=== PATIENT | male | born 1965 | race African-American/Black ===

== ENCOUNTER 2017-07-30 08:07 | Emergency (ER) | payer MEDICAID ==
[~2017-07-30] VITALS: Ht 182.9 cm; Wt 95.0 kg
[~2017-07-30 08:07] MED LIST: ASPI81TA35; ATOR10TA; ZYDS20
[2017-07-30] MEDS ORDERED: IBUPROFEN 800MG TABLET PO ONE (09:30)
[2017-07-30 09:50] LABS: HEMATOCRIT. 36.9 % (42.0-52.0); MEAN CORPUSCULAR HEMOGLOBIN 27.8 pg (28.0-32.0); MEAN CORPUSCULAR VOLUME 85.4 fL (80.0-94.0); MEAN PLATELET VOLUME 7.9 fl (7.4-10.4); PLATELET 202 x1000/uL (130-400); RED BLOOD CELL COUNT 4.32 mill/uL (4.7-6.1); RED CELL DISTRIBUTION WIDTH 14.5 % (11.6-14.6)
[2017-07-30 09:55] LABS: CHLORIDE 101 mEq/L (98-107)
[2017-07-30 10:02] LABS: CARBON DIOXIDE 33 mEq/L (21-32)
[2017-07-30 10:04] LABS: CLARITY URINE CLEAR (CLEAR); COLOR URINE DARK YELLOW (YELLOW); GLUCOSE URINE NEGATIVE (NEGATIVE); KETONES URINE TRACE (NEGATIVE); LEUKOCYTE ESTERASE URINE NEGATIVE (NEGATIVE); NITRITE URINE NEGATIVE (NEGATIVE); OCCULT BLOOD URINE 2+ (NEGATIVE); PROTEIN URINE 1+ (NEGATIVE); SPECIFIC GRAVITY URINE 1.031 (1.005-1.030)
[2017-07-30 10:34] LABS: PLATELET ESTIMATE NORMAL
[2017-07-30] MEDS ORDERED: VANCOMYCIN 1 G PREMIX 200 ML IV SCH (11:30)
[2017-07-30 14:06] VITALS: BP 136/80
== END 2017-07-30 15:08 | disposition home or self-care (01) ==
LOC: ER 08:17
DX: N28.9 Disorder of kidney and ureter, unspecified (principal); I87.2 Venous insufficiency (chronic) (peripheral); M19.90 Unspecified osteoarthritis, unspecified site; J45.909 Unspecified asthma, uncomplicated; L03.116 Cellulitis of left lower limb; L03.115 Cellulitis of right lower limb; Z79.82 Long term (current) use of aspirin
CPT/HCPCS: 36415; 80048; 81001; 83036; 85025; 93923; 93970; 96365; 96366; 99285; J3370; Z7610